=== PATIENT | female | born 1965 | race Caucasian/White ===

== ENCOUNTER 2022-09-08 09:39 | Inpatient (IN) | payer BC ==
[~2022-09-08] VITALS: Ht 162.6 cm; Wt 95.1 kg
--- NOTE | 2022-09-08 09:48 | NUR ---
MD AT BEDSIDE, LOW SUSPICION FOR STROKE AT THIS TIME
--- NOTE | 2022-09-08 09:48 | NUR ---
MD AT BEDSIDE LOW SUSPICION FOR STROKE AT THIS TIME. NO TPA ORDERED. TO PLACE ATIVAN ORDERS PT TO GO TO CT ACCUCHECK [id number]
[2022-09-08] MEDS ORDERED: LORazepam 1 MG tablet PO ONE (10:00)
--- NOTE | 2022-09-08 10:00 | NUR ---
PT TO CT
[2022-09-08 10:18] LABS: BASOPHILS % (AUTO) 0.7 % (0-1); EOSINOPHILS # (AUTO) 0.1 X10'3 (0-0.9); EOSINOPHILS % (AUTO) 1.4 % (0-6); HEMATOCRIT 43.7 % (35.0-45.0); HEMOGLOBIN 14.7 g/dl (12.0-16.0); LYMPHOCYTES # (AUTO) 1.5 X10'3 (1.1-4.8); LYMPHOCYTES % (AUTO) 28.4 % (21-51); MEAN CORPUSCULAR HEMOGLOBIN 30.1 PG (27.0-31.0); MEAN CORPUSCULAR HGB CONC 33.7 g/dL (33.0-36.5); MEAN CORPUSCULAR VOLUME 89.5 FL (78-98); MEAN PLATELET VOLUME 8.1 FL (7.4-10.4); MONOCYTES # (AUTO) 0.4 X10'3 (0-0.9); MONOCYTES % (AUTO) 8.4 % (2-12); NEUTROPHILS # (AUTO) 3.2 X10'3 (1.8-7.7); NEUTROPHILS % (AUTO) 61.1 % (42-75); PLATELET COUNT 231 X10'3 (140-440); RED BLOOD COUNT 4.88 X10'6 (4.20-5.60); RED CELL DISTRIBUTION WIDTH 13.9 % (11.5-14.5); WHITE BLOOD COUNT 5.2 X10'3 (4.5-11.0)
[2022-09-08 10:31] LABS: APTT 25 SECONDS (22-32)
[2022-09-08 10:33] LABS: ALANINE AMINOTRANSFERASE 28 U/L (12-78); ALBUMIN 3.6 G/DL (3.4-5.0); ALBUMIN/GLOBULIN RATIO 1.1 (1.1-1.5); ALKALINE PHOSPHATASE 84 IU/L (46-116); ANION GAP 11 (8-16); ASPARTATE AMINO TRANSFERASE 20 U/L (10-37); BILIRUBIN,TOTAL 0.7 MG/DL (0.1-1.0); BLOOD UREA NITROGEN 22 MG/DL (7-18); BUN/CREATININE RATIO 25.6 (6.6-38.0); CALCIUM 8.7 MG/DL (8.5-10.1); CHLORIDE 105 MMOL/L (99-107); CREATININE 0.86 MG/DL (0.40-0.90); GLUCOSE 122 MG/DL (70-104); POTASSIUM 3.4 MMOL/L (3.5-5.1); SODIUM 141 MMOL/L (135-145); TOTAL CARBON DIOXIDE 25.3 MMOL/L (24-32); eGFR 68 ML/MIN
[2022-09-08] MEDS ORDERED: iohexol 350MG/ML 100ml bottle IV ONE (10:52)
--- NOTE | 2022-09-08 11:22 | NUR ---
PT TO CT
[2022-09-08 11:25] LABS: CLARITY,URINE CLEAR (Clear); COLOR,URINE YELLOW (Yellow); GLUCOSE, URINE NEGATIVE (Neg); KETONES,URINE NEGATIVE (Neg); LEUKOCYTE ESTERASE ,URINE NEGATIVE (Neg); NITRITES, URINE NEGATIVE (Neg); OCCULT BLOOD,URINE NEGATIVE (Neg); PROTEIN,URINE NEGATIVE (Neg); UROBILINOGEN,URINE 0.2 E.U/dL (0.2-1.0)
[2022-09-08 11:32] LABS: UA COLLECTION TYPE CLN CATCH MIDSTREAM
[2022-09-08] MEDS ORDERED: aspirin 81mg tab.chew PO ONE (11:35)
[2022-09-08 11:45] LABS: URINE AMPHETAMINE SCREEN NEGATIVE (Neg); URINE BARBITUATE SCREEN NEGATIVE (Neg); URINE BENZODIAZEPINES SCREEN NEGATIVE (Neg); URINE CANNABINOID SCREEN NEGATIVE (Neg); URINE COCAINE SCREEN NEGATIVE (Neg); URINE METHADONE SCREEN NEGATIVE (Neg); URINE OPIATE SCREEN NEGATIVE (Neg); URINE PHENCYCLIDINE SCREEN NEGATIVE (Neg)
--- NOTE | 2022-09-08 13:26 | NUR ---
Pt brought back from MRI
--- NOTE | 2022-09-08 14:10 | NUR ---
DR GARCIA AT BEDSIDE WANTS A REPEAT OF TELE NEURO CONSULT
[2022-09-08] MEDS ORDERED: GADOTERATE MEGLUMINE 7.5 MMOL/15 ML VIAL IV ONE (14:12)
[2022-09-08] MEDS ORDERED: temazepam 15mg capsule PO PRN (21:00)
[2022-09-08] MEDS ORDERED: potassium Cl 40MEQ/1/2NS 520ml 520 ML IV PRN (22:10)
[2022-09-08] MEDS ORDERED: diphenhydrAMINE 25mg capsule PO PRN (22:10)
[2022-09-08] MEDS ORDERED: ondansetron/PF 4mg/2ml inj IV PRN (22:10)
[2022-09-08] MEDS ORDERED: HYDROcodone/acetaminophen 10/325mg tab PO PRN (22:10)
[2022-09-08] MEDS ORDERED: morphine 2 MG/ML inj. syringe IV PRN ×2 (22:10)
[2022-09-08] MEDS ORDERED: acetaminophen 325mg tablet PO PRN ×2 (22:10)
[2022-09-08] MEDS ORDERED: magnesium 4gm in 100ml NS 100 ML IV PRN (22:10)
[2022-09-08] MEDS ORDERED: bisacodyl 10mg suppository rectal RC PRN (22:10)
[2022-09-08] MEDS ORDERED: magnesium Cl slow-release 64mg tablet PO PRN (22:10)
[2022-09-08] MEDS ORDERED: mag hydrox/Alum hydrox/simeth 30ml oral suspension PO PRN (22:10)
[2022-09-08] MEDS ORDERED: acetaminophen 650mg rectal suppository RC PRN (22:10)
[2022-09-08] MEDS ORDERED: HYDROcodone/acetaminophen 5mg/325mg tablet PO PRN (22:10)
[2022-09-08] MEDS ORDERED: ondansetron 4mg rapidly disintigrating tab PO PRN (22:10)
[2022-09-08] MEDS ORDERED: potassium Cl 20 mEq SR tablet PO PRN (22:10)
[2022-09-08] MEDS ORDERED: magnesium hydroxide 30ml (MOM) UD suspension PO PRN (22:10)
[2022-09-08] MEDS ORDERED: diphenhydrAMINE 50 mg/ml inj IV PRN (22:10)
[2022-09-08] MEDS: normal saline 1000ml 1,000 ML IV SCH (22:41)
[2022-09-08 22:48] LABS: MAGNESIUM 1.9 MG/DL (1.5-2.4); PHOSPHORUS 2.7 MG/DL (2.3-4.5)
[2022-09-08 22:51] LABS: HEMOGLOBIN A1C 5.7 % (4.5-6.2)
[2022-09-08 23:13] LABS: CHOL/HDL RATIO 5.2 (0.00-4.99); CHOLESTEROL 297 MG/DL (0-200); HDL CHOLESTEROL 57 MG/DL (35-60); LDL CHOLESTEROL 195 MG/DL (50-100); TRIGLYCERIDES 196 MG/DL (20-135)
[2022-09-08] MEDS: amLODIPine 5mg tablet PO SCH (23:56)
[2022-09-09] MEDS ORDERED: NO HOME MEDS (00:06)
[2022-09-09 03:24] VITALS: BP 147/82
[2022-09-09] MEDS: normal saline 1000ml 1,000 ML IV SCH (03:35)
[2022-09-09 07:00] VITALS: BP 142/85
--- NOTE | 2022-09-09 07:11 | NUR ---
Patient in room PCU 3015. I have received report from BENNIE JIMENEZ, and had the opportunity to ask questions and assume patient care.
[2022-09-09 07:23] LABS: BASOPHILS % (AUTO) 0.5 % (0-1); EOSINOPHILS # (AUTO) 0.1 X10'3 (0-0.9); EOSINOPHILS % (AUTO) 1.6 % (0-6); HEMATOCRIT 41.9 % (35.0-45.0); HEMOGLOBIN 14.1 g/dl (12.0-16.0); LYMPHOCYTES # (AUTO) 1.1 X10'3 (1.1-4.8); LYMPHOCYTES % (AUTO) 20.7 % (21-51); MEAN CORPUSCULAR HEMOGLOBIN 30.3 PG (27.0-31.0); MEAN CORPUSCULAR HGB CONC 33.6 g/dL (33.0-36.5); MEAN PLATELET VOLUME 8.8 FL (7.4-10.4); MONOCYTES # (AUTO) 0.4 X10'3 (0-0.9); MONOCYTES % (AUTO) 7.7 % (2-12); NEUTROPHILS # (AUTO) 3.8 X10'3 (1.8-7.7); NEUTROPHILS % (AUTO) 69.5 % (42-75); PLATELET COUNT 173 X10'3 (140-440); RED BLOOD COUNT 4.66 X10'6 (4.20-5.60); RED CELL DISTRIBUTION WIDTH 13.6 % (11.5-14.5); WHITE BLOOD COUNT 5.4 X10'3 (4.5-11.0)
[2022-09-09] MEDS ORDERED: pantoprazole 40mg Tablet.DR PO SCH (07:30)
[2022-09-09 07:54] LABS: ALANINE AMINOTRANSFERASE 32 U/L (12-78); ALBUMIN 3.4 G/DL (3.4-5.0); ALBUMIN/GLOBULIN RATIO 1.1 (1.1-1.5); ALKALINE PHOSPHATASE 86 IU/L (46-116); ANION GAP 11 (8-16); ASPARTATE AMINO TRANSFERASE 26 U/L (10-37); BILIRUBIN,TOTAL 0.7 MG/DL (0.1-1.0); BLOOD UREA NITROGEN 18 MG/DL (7-18); BUN/CREATININE RATIO 19.6 (6.6-38.0); CALCIUM 8.3 MG/DL (8.5-10.1); CHLORIDE 104 MMOL/L (99-107); CREATININE 0.92 MG/DL (0.40-0.90); GLUCOSE 197 MG/DL (70-104); MAGNESIUM 2.1 MG/DL (1.5-2.4); SODIUM 140 MMOL/L (135-145); TOTAL CARBON DIOXIDE 25.3 MMOL/L (24-32); TOTAL PROTEIN 6.6 G/DL (6.4-8.2); eGFR 62 ML/MIN
[2022-09-09] MEDS ORDERED: chlorthalidone 25mg tablet PO SCH (08:00)
[2022-09-09] MEDS ORDERED: atorvastatin 20mg tablet PO SCH (08:00)
[2022-09-09] MEDS ORDERED: docusate sod 100mg capsule PO SCH (08:00)
[2022-09-09] MEDS ORDERED: K and/or MAG REPLACEMENT MC SCH (08:00)
[2022-09-09] MEDS ORDERED: heparin, porcine 5000 units/ml vial SQ SCH (08:00)
[2022-09-09] MEDS ORDERED: aspirin 81mg, enteric-coated 1 TAB TABLET.DR PO SCH (08:00)
--- NOTE | 2022-09-09 08:17 | NUR ---
PAGE SENT Message: [id number], LEILANI SHAH, CRITICAL LAB - K 3.0. THANK YOU, KAVYA [id number] Custom Responses: promotional table spacer Transaction number: [id number]
[2022-09-09] MEDS: amLODIPine 5mg tablet PO SCH (09:06)
[2022-09-09] MEDS: potassium Cl 20 mEq SR tablet PO PRN ×2 (09:10→13:31)
[2022-09-09 11:00] VITALS: BP 131/82
[2022-09-09] MEDS ORDERED: potassium Cl 20 mEq SR tablet PO STA (14:39)
[2022-09-09] MEDS ORDERED: CHLO25TA11 PO (14:40)
[2022-09-09] MEDS ORDERED: ASPI-1071 PO (14:40)
[2022-09-09] MEDS ORDERED: ATOR20TA66 PO (14:40)
[2022-09-09] MEDS ORDERED: PANT40TA54 PO (14:40)
[2022-09-09] MEDS ORDERED: POTA-206 PO (14:40)
[2022-09-09] MEDS ORDERED: NOR5T PO (14:40)
[2022-09-09 14:47] VITALS: BP 129/80
--- NOTE | 2022-09-09 15:35 | NUR ---
PT IS STABLE FOR DISCHARGE PER MD. DISCHARGE AND FOLLOW UP INSTRUCTIONS REVIEWED WITH PATIENT. APPROPRIATE PAPERWORK SIGNED. TELE BOX REMOVED. PIV REMOVED WITH TIP INTACT. BELONGINGS GATHERED FOR PATIENT. PATIENT WAS WHEELED TO PRIVATE VEHICLE BY HOSPITAL STAFF. PATIENT DISCHARGED HOME.
== END 2022-09-09 15:24 | disposition home or self-care (01) | DRG 948 ==
LOC: ER 09:40 → ED HOLD 22:12 → PCU 3S 09-09 03:24
PROVIDERS: ADMIT Family Medicine; ATTEND Family Medicine
PROC: B3251ZZ Computerized Tomography (CT Scan) of Bilateral Common Carotid Arteries using Low Osmolar Contrast (ICD-10-PCS; principal; 2022-09-08)
PROC: B32G1ZZ Computerized Tomography (CT Scan) of Bilateral Vertebral Arteries using Low Osmolar Contrast (ICD-10-PCS; 2022-09-08)
PROC: B32R1ZZ Computerized Tomography (CT Scan) of Intracranial Arteries using Low Osmolar Contrast (ICD-10-PCS; 2022-09-08)
PROC: B3281ZZ Computerized Tomography (CT Scan) of Bilateral Internal Carotid Arteries using Low Osmolar Contrast (ICD-10-PCS; 2022-09-08)
DX: R41.3 Other amnesia (principal); E03.9 Hypothyroidism, unspecified; F12.90 Cannabis use, unspecified, uncomplicated; Z20.822 Contact with and (suspected) exposure to COVID-19; E04.2 Nontoxic multinodular goiter; I10 Essential (primary) hypertension; Z80.1 Family history of malignant neoplasm of trachea, bronchus and lung; Z82.0 Family history of epilepsy and other diseases of the nervous system; Z88.1 Allergy status to other antibiotic agents; Z88.0 Allergy status to penicillin
CPT/HCPCS: 36415; 70450; 70496; 70498; 70553; 71045; 76536; 80053; 80061; 80305; 81003; 82948; 83036; 83735; 83880; 84100; 84443; 85025; 85610; 85730; 87081; 87811; 93005; 93306; 95816; 99285; A9575; G0378; J1644; J3490; J7030; Q9967